=== PATIENT | male | born 1945 | race Caucasian/White ===

== ENCOUNTER 2019-01-31 16:57 | Inpatient (IN) | payer MEDICARE, OTHER ==
[~2019-01-31] VITALS: Ht 172.7 cm; Wt 86.3 kg
[2019-01-31] MEDS ORDERED: SODIUM CHLORIDE 0.9% 1,000 ML IV ONE (17:29)
[2019-01-31] MEDS ORDERED: ASPirin 81 mg TAB PO ONE (17:30)
[2019-01-31 18:25] LABS: Albumin 2.8 g/dL (3.4-5.0); Calcium 8.3 mg/dL (8.5-10.1); Potassium 3.6 mmol/L (3.5-5.1)
[2019-01-31 18:30] LABS: BUN/Creatinine Ratio 23.1; Bilirubin, Total 0.5 mg/dL (0.2-1.0); Total Protein 7.1 g/dL (6.4-8.2)
[2019-01-31 19:09] LABS: Basophils # (auto) 0 uL; Basophils % (auto) 0.1 % (0.0-2.0); Eosinophils # (auto) 0 uL; Eosinophils % (auto) 0.1 % (0.0-7.0); Hematocrit 43.3 % (41.0-53.0); Hemoglobin 14.3 g/dL (13.5-17.5); Lymphocytes # (auto) 1.4 uL; Lymphocytes % (auto) 12.2 % (10.0-50.0); Mean Corpuscular Hemoglobin 30.7 pg (28.0-32.0); Mean Corpuscular Hgb Conc. 33.1 g/dL (32.0-36.0); Mean Corpuscular Volume 92.8 fL (80.0-100.0); Monocytes # (auto) 1.1 uL; Neutrophils # (auto) 8.8 uL; Neutrophils % (auto) 77.6 % (37.0-80.0); Platelet Count (auto) 211 10^3/uL (140-450); Red Blood Cells 4.66 10^6/uL (4.5-5.90); Red Cell Distribution Width 15.2 % (11.8-14.3); White Blood Cell 11.3 10^3/uL (4.4-10.8)
[2019-01-31] MEDS ORDERED: ENOXAPARIN SOD 100 MG/1 ML SYRINGE SC ONE (19:15)
[2019-01-31 19:31] LABS: INR 1.14 (0.9-1.15); Partial Thromboplastin Time 22.6 sec (23.64-32.05)
[2019-01-31] MEDS ORDERED: ALBUTEROL SULF 2.5 MG/0.5ML(0.5%) NEB SOLN NEB ONE (21:45)
[2019-01-31] MEDS ORDERED: IPRATROPIUM BROM 0.5 MG/2.5ML INH SOL NEB ONE (21:45)
[2019-01-31] MEDS ORDERED: HYDROcodone-ACET 5/325MG TAB PO PRN (22:00)
[2019-01-31] MEDS ORDERED: ACETAMINOPHEN 325 MG TAB PO PRN (22:00)
[2019-01-31] MEDS ORDERED: NITROGLYCERIN 0.4 MG SL TAB SL PRN (22:00)
[2019-01-31] MEDS ORDERED: MORPHINE SULF INJ 2 MG/ML SYRINGE 1ML IV PRN (22:00)
[2019-01-31] MEDS ORDERED: ONDANSETRON HCL 4 MG/2 ML VIAL IV PRN (22:00)
[2019-01-31] MEDS: ATORVASTATIN 20 MG TAB PO SCH (23:11)
[2019-01-31] MEDS: MEXILETINE HYDROCHLORIDE 150 MG CAP PO SCH (23:11)
[2019-01-31] MEDS: METOPROLOL TARTRATE 25 MG TAB PO SCH (23:45)
[2019-02-01] VITALS (18 sets, daily range): BP systolic 103–126; BP diastolic 39–55
--- NOTE | 2019-02-01 05:24 | NUR ---
Respiratory note: ASSESSED PATIENT FOR PRN BREATHING TX. PATIENT WAS IN NO RESPIRATORY DISTRESS AND DENIES ANY SHORTNESS OF BREATH. PATIENT HR 54, SP02 98% ON 2 L NASAL CANNULA, RR 17, AND BREATH SOUNDS ARE CLEAR. PATIENT WAS INFORMED TO HAVE RT PAGED IF BREATHING TX IS NEEDED. PATIENT VERBALIZED UNDERSTANDING. WILL CONTINUE TO MONITOR PATIENT.
[2019-02-01 05:49] LABS: Basophils # (auto) 0 uL; Basophils % (auto) 0.3 % (0.0-2.0); Eosinophils # (auto) 0 uL; Eosinophils % (auto) 0.1 % (0.0-7.0); Hematocrit 41.2 % (41.0-53.0); Hemoglobin 13.5 g/dL (13.5-17.5); Lymphocytes # (auto) 1.8 uL; Lymphocytes % (auto) 21.7 % (10.0-50.0); Mean Corpuscular Hemoglobin 30.4 pg (28.0-32.0); Mean Corpuscular Hgb Conc. 32.7 g/dL (32.0-36.0); Mean Corpuscular Volume 92.8 fL (80.0-100.0); Monocytes # (auto) 0.8 uL; Monocytes % (auto) 9.3 % (0.0-12.0); Neutrophils # (auto) 5.7 uL; Neutrophils % (auto) 68.6 % (37.0-80.0); Nucleated Red Blood Cells % 0.1 %; Platelet Count (auto) 238 10^3/uL (140-450); Red Blood Cells 4.44 10^6/uL (4.5-5.90); Red Cell Distribution Width 14.9 % (11.8-14.3); White Blood Cell 8.3 10^3/uL (4.4-10.8)
[2019-02-01 05:50] LABS: Urine Bacteria NONE SEEN /hpf (None Seen); Urine Blood Negative /uL (Negative); Urine Mucus FEW (None Seen); Urine Specific Gravity 1.019 (1.001-1.035); Urine WBC <1 /hpf (0 - 3)
[2019-02-01 06:08] LABS: Calcium 8.4 mg/dL (8.5-10.1); Potassium 4.4 mmol/L (3.5-5.1)
[2019-02-01 06:11] LABS: BUN/Creatinine Ratio 22.6
[2019-02-01] MEDS: MEXILETINE HYDROCHLORIDE 150 MG CAP PO SCH ×3 (06:27→22:00)
[2019-02-01] MEDS: ALBUTEROL SULF 2.5 MG/0.5ML(0.5%) NEB SOLN NEB PRN ×2 (06:39→18:44)
[2019-02-01] MEDS: IPRATROPIUM BROM 0.5 MG/2.5ML INH SOL NEB PRN ×2 (06:39→18:44)
--- NOTE | 2019-02-01 06:39 | NUR ---
Respiratory note: PRN BREATHING TX WAS GIVEN DUE TO PATIENT FEELING SHORT OF BREATH. NO ADVERSE REACTIONS NOTED. WILL CONTINUE TO MONITOR PATIENT. FABIO LAWSON AWARE.
[2019-02-01] MEDS: CLOPIDOGREL BISULFATE 75 MG TAB PO SCH (09:32)
--- NOTE | 2019-02-01 09:40 | NUR ---
Respiratory note: PRN BREATHING TX GIVEN DUE TO PATIENT FEELING SHORT OF BREATH. NO ADVERSE REACTIONS NOTED OR STATED. PATIENT IS TOLERATING TX WELL. FABIO ADAIR AWARE. WILL CONTINUE TO MONITOR PATIENT.
[2019-02-01] MEDS ORDERED: VALSARTAN 80 MG TAB PO SCH (10:00)
[2019-02-01] MEDS: ASPirin-EC 81 mg tab PO SCH (10:20)
[2019-02-01] MEDS: ENOXAPARIN SOD 100 MG/1 ML SYRINGE SC SCH ×2 (10:20→22:13)
[2019-02-01] MEDS: METOPROLOL TARTRATE 25 MG TAB PO SCH ×2 (10:32→22:00)
[2019-02-01] MEDS: MAGNESIUM SULFATE 1GM/100ML 100 ML IV SCH ×2 (13:09→14:23)
[2019-02-01] MEDS ORDERED: AMIODARONE HCL 150 MG in D5W 5% 100 ML IV ONE (13:45)
[2019-02-01] MEDS ORDERED: AMIODARONE HCL 900 MG in DEXTROSE 500 ML IV SCH (13:47)
[2019-02-01 15:02] LABS: Alcohol, Urine < 3.0 mg/dL (0-5); Amphetamine Screen, Urine NEGATIVE (NEGATIVE); Barbiturate Scree,Urine NEGATIVE (NEGATIVE); Benzodiazephine Screen, Urine NEGATIVE (NEGATIVE); Cannabinoid Screen, Urine NEGATIVE (NEGATIVE); Cocaine Screen, Urine NEGATIVE (NEGATIVE); Opiate Scree,Urine NEGATIVE (NEGATIVE); Phencyclidine Screen, Urine NEGATIVE (NEGATIVE)
--- NOTE | 2019-02-01 19:45 | NUR ---
Pt being admitted to ICU CHERI GANDHI admitted to ICU via gurney on laboratory monitor, and portable 02. Patient transferred to bed, connected to ICU monitoring and oxygen, and weighed by bed scale. Patient oriented to Shaniqua Cunha primary RN, unit, room, bed, and unit policies regarding patient care and visiting hours. All questions and concerns addressed, patient verbalized understanding. NOTE: PT A/O X 4 WITH NO COMPLAINTS OF PAIN OR SOB. AMIO INFUSING AT 1 MG/MIN TO RIGHT HAND 18 G, LINE PATENT/INTACT/ASYMPTOMATIC. PT AWARE TO INFORM RN IF ANY IRRITATION BEGINS TO OCCUR. PT SR IN THE 70s WITH OCCASIONAL PVCs, SBP 110s. ZOLL LIFE VEST IN PLACE, FABRIC MACHINE OPERATOR AND HOT SPOT AT BEDSIDE.PT ON 2 L NC, POX 94-96%, RIGHT UPPER LUNG SOUNDS COARSE, NON PRODUCTIVE COUGH. CALL LIGHT WITHIN REACH, PT AWARE TO CALL RN FOR ANY ASSISTANCE PRN.
--- NOTE | 2019-02-01 21:00 | NUR ---
ZOLL NOTE PT ONLY HAS ZOLL VEST BRAND STRATEGIST AT BEDSIDE, SON TO BRING IN "HOT SPOT". SPOKE WITH SONIA FROM [employer], STATES TO CALL ONCE "HOT SPOT" IS AT BEDSIDE AND INTERROGATION CAN BE DONE AT BEDSIDE WITH RN. WILL FOLLOW UP WHEN "HOT SPOT" ARRIVES. BRAND STRATEGIST AT BEDSIDE AND PLUGGED IN.
--- NOTE | 2019-02-01 21:15 | NUR ---
ACTIVITY PT. REFUSING TO USE URINAL, EDUCATED ON LIGHT ACTIVITY D/T HISTORY OF CHEST PAIN/SOB IN ED. PT CONTINUES TO REFUSE USING URINAL STATING "THEY LET ME USE THE BATHROOM IN THE ER". FALL SOCKS PLACED ON PT, AMBULATED TO BATHROOM WITH STANDBY ASSIST ON 2 L NC, PT WITH STEADY GAIT. TOLERATED ACTIVITY WELL AND ASSISTED BACK TO BED WITHOUT ISSUE. CALL LIGHT WITHIN REACH.
[2019-02-01] MEDS: AMIODARONE HCL 900 MG in DEXTROSE 500 ML IV SCH (21:45)
--- NOTE | 2019-02-01 21:45 | NUR ---
AMIO DECREASED DRIP TO 0.5 MG/MIN PER PROTOCOL.
[2019-02-01] MEDS: ATORVASTATIN 20 MG TAB PO SCH (22:13)
--- NOTE | 2019-02-01 22:14 | NUR ---
PO MEDICATIONS PT'S HR SR IN THE 60s; HELD PO METOPROLOL AND PO MEXITIL TO AVOID BRADYCARDIA. SBP 110s.
[2019-02-02] VITALS (63 sets, daily range): BP systolic 81–157; BP diastolic 31–87
--- NOTE | 2019-02-02 00:41 | NUR ---
PT'S GRANDDAUGHTER AT BEDSIDE, UPDATE PROVIDED.
--- NOTE | 2019-02-02 00:55 | NUR ---
BLOOD PRESSURE PT. RESTING, EYES CLOSED WITH RESPIRATIONS EVEN AND UNLABORED. SBP MAINTAINING IN THE 80s, HOSPITALIST JENNIFER. AMIO CONTINUES TO INFUSE AT 0.5 MG/MIN, HR SB HIGH 50s WITH PVCs. Addendum: 02/02/19 at 0104 by Shaniqua Cunha RN ERROR: VAUGHN RODRIGUEZ
--- NOTE | 2019-02-02 01:26 | NUR ---
SECOND PAGE TO CARDIOLOGY. Addendum: 02/02/19 at 0238 by Shaniqua Cunha RN CHARU ON HOLD AT THIS TIME FOR PT SAFETY.
[2019-02-02] MEDS ORDERED: VALS40TA2 PO (01:31)
[2019-02-02] MEDS ORDERED: ATOR40TA52 PO (01:31)
[2019-02-02] MEDS ORDERED: ASPI-231 PO (01:31)
[2019-02-02] MEDS ORDERED: MEX150C PO (01:31)
[2019-02-02] MEDS ORDERED: CLOP75TA41 PO (01:31)
[2019-02-02] MEDS ORDERED: METO25TA5 PO (01:31)
--- NOTE | 2019-02-02 04:15 | NUR ---
ACTIVITY PT. UP TO BATHROOM WITH STANDBY ASSIST, VOIDED APPROX. 600 MLs CLEAR YELLOW URINE AND ASSISTED BACK TO BED WITHOUT ISSUE.
[2019-02-02 04:19] LABS: Basophils # (auto) 0 uL; Basophils % (auto) 0.1 % (0.0-2.0); Eosinophils # (auto) 0.1 uL; Eosinophils % (auto) 0.9 % (0.0-7.0); Hematocrit 39.4 % (41.0-53.0); Hemoglobin 13.4 g/dL (13.5-17.5); Lymphocytes # (auto) 1.9 uL; Lymphocytes % (auto) 21.4 % (10.0-50.0); Mean Corpuscular Hemoglobin 31.3 pg (28.0-32.0); Mean Corpuscular Volume 92.1 fL (80.0-100.0); Monocytes # (auto) 0.8 uL; Monocytes % (auto) 8.9 % (0.0-12.0); Neutrophils % (auto) 68.7 % (37.0-80.0); Nucleated Red Blood Cells % 0.1 %; Platelet Count (auto) 214 10^3/uL (140-450); Red Blood Cells 4.28 10^6/uL (4.5-5.90); Red Cell Distribution Width 14.6 % (11.8-14.3); White Blood Cell 8.7 10^3/uL (4.4-10.8)
[2019-02-02 04:38] LABS: Calcium 7.8 mg/dL (8.5-10.1); Potassium 3.9 mmol/L (3.5-5.1)
[2019-02-02 04:42] LABS: BUN/Creatinine Ratio 19.1; Magnesium 2.5 mg/dL (1.6-2.6)
[2019-02-02] MEDS: MEXILETINE HYDROCHLORIDE 150 MG CAP PO SCH ×3 (06:00→22:30)
--- NOTE | 2019-02-02 06:10 | NUR ---
HERBERT MCCONNELLATION SPOKE WITH ADALID MOONEY, WHO WALKED ME THROUGH THE STEPS TO SEND DATA RECOVERED FROM THE PT'S INITIAL EPISODE AT HOME. SHE FAXED COPIES OF THE DATA RETRIEVED, WILL PLACE IN CHART AND INFORM DR. CLARK. SHE STATES "VEST IS FUNCTIONING APPROPRIATELY".
--- NOTE | 2019-02-02 07:33 | NUR ---
CARDIO DR. CLARK AT BEDSIDE TO ASSESS PT. UPDATE PROVIDED. ORDER RECEIVED TO CONSULT DR. WALTER.
--- NOTE | 2019-02-02 07:34 | NUR ---
SPOKE WITH DR. WALTER, UPDATE PROVIDED ON PT. STATES HE WILL BE IN THIS AM TO EVALUATE.
--- NOTE | 2019-02-02 07:35 | NUR ---
REPORT CARE ENDORSED TO FABIO SYED.
--- NOTE | 2019-02-02 07:40 | NUR ---
OPEN Report received from Shaniqua MCCARTHY, care assumed. Patient observed sitting on edge of bed. No distress or complaints of pain noted. Patient is A&Ox4. Patient able to ambulate with standby assistance. Afebrile. Vitals stable. Patient is wearing Zoll life vest at this time. Sinus rhythm 60's. Blood pressure stable. Lungs diminished on 2 L nasal cannula. Denies shortness of breath. Physical assessment performed. Bed locked in lowest position, call light within reach. Patient instructed to call for assistance. Patient verbalized understanding. Will continue to monitor.
--- NOTE | 2019-02-02 08:20 | NUR ---
MEDICAL RECORDS Request form sent to [facility] for echocardiogram report.
[2019-02-02] MEDS: ALBUTEROL SULF 2.5 MG/0.5ML(0.5%) NEB SOLN NEB PRN (09:06)
[2019-02-02] MEDS: IPRATROPIUM BROM 0.5 MG/2.5ML INH SOL NEB PRN (09:06)
[2019-02-02] MEDS: CLOPIDOGREL BISULFATE 75 MG TAB PO SCH (10:00)
[2019-02-02] MEDS: SACUBITRIL-VALSARTAN 24mg/26mg TAB PO SCH ×2 (10:00→22:30)
[2019-02-02] MEDS: ENOXAPARIN SOD 100 MG/1 ML SYRINGE SC SCH (10:00)
[2019-02-02] MEDS: ASPirin-EC 81 mg tab PO SCH (10:01)
[2019-02-02] MEDS: AMIODARONE HCL 200 MG TAB PO SCH ×2 (10:01→22:30)
--- NOTE | 2019-02-02 11:20 | NUR ---
WOUND CARE NOTE: Wound care in to see patient per wound care request regarding "Rt upper back scabbed lesion" that are noted present on admission. Bedside nurse took photograph of patient's wound upon admission for reference. Patient is 74 y/o male with admitting diagnosis of CP, V Tach. Patient has history of Htn, VT. Patient is resting in ICU bed in Rm 106. He's awake, alert and oriented. He's ambulatory and uses BSC, self turn and reposition. His current Leonardo score is 20. Patient denies any pain at this time. 1.5x1cm open full thickness wound with no measurable depth noted to patient's Rt upper back. Wound is red with pink periwound, scant serosanguineous drainage noted, no odor noted. Cleansed with NS,patted dry with gauze, applied Thera honey gel and covered with Opti foam gentle dressing per MD order. Dry scabbed lesion also noted to his Lt shoulder, area is clean and dry, left open to air. Patient reported that he's to see a education administrative assistant upon discharge. No pressure injury noted. Repositioned patient for comfort sitting on his bed with head of bed elevated. Patient tolerated well. Bed in low position, Call dye within reach. No further wound care monitoring needed at this time. RECOMMENDATION: Q3Days/PRN dressing change to Rt upper back wound per MD order. Addendum: 02/02/19 at 1721 by Alison Rivera RN Amended: Links added.
--- NOTE | 2019-02-02 11:21 | NUR ---
VOID Patient ambulated to toilet to urinate with standby assistance. Patient tolerated activity well, denies shortness of breath or pain. Patient now back in bed resting with call light within reach. Will continue to monitor.
--- NOTE | 2019-02-02 11:24 | NUR ---
WOUND CARE Consult complete by Kev MCCARTHY.
--- NOTE | 2019-02-02 11:41 | NUR ---
CARDIOLOGY ROUNDS at bedside for consult. He consented patient on AICD placement for either tomorrow or Saturday. All questions and concerns have been addressed. He has seen Zoll interrogation report. He stated to D/C Lovenox and hold Plavix for tomorrow.
[2019-02-02] MEDS: METOPROLOL TARTRATE 25 MG TAB PO SCH ×2 (11:45→22:30)
--- NOTE | 2019-02-02 14:00 | NUR ---
VIDEO Patient watched the educational video regarding AICD procedure.
[2019-02-02] MEDS: AMIODARONE HCL 900 MG in DEXTROSE 500 ML IV SCH (15:18)
--- NOTE | 2019-02-02 15:18 | NUR ---
PO MEDICATIONS Mexitil held due to heart rate decreasing into 50's. SBP 100's, no distress noted. Will continue to monitor.
--- NOTE | 2019-02-02 16:00 | NUR ---
PAIN Patient complaining of head ache, "pressure in my temples". Patient medicated with Tylenol PRN.
--- NOTE | 2019-02-02 16:30 | NUR ---
ROOM CHANGE Patient moved to room 103 via bed with all personal belongings.
--- NOTE | 2019-02-02 17:17 | NUR ---
MD ROUNDS at bedside. Orders received for downgrade, solar tech, and he is aware of AICD placement scheduled for tomorrow.
[2019-02-02] MEDS ORDERED: AZITHROMYCIN 250 MG TAB PO ONE (19:45)
--- NOTE | 2019-02-02 20:19 | NUR ---
REPORT REPORT GIVEN TO FABIO PETERS. PT TRANSFERRED UP TO [facility] VIA BED ON PORTABLE MONITOR RAND 2 L NC. ALL BELONGINGS INCLUDING CELL PHONE, ZOLL VEST, ZOLL MONITOR AND HOT SPOT SENT WITH PATIENT. PT STABLE AT TIME OF TRANSFER.
--- NOTE | 2019-02-02 20:20 | NUR ---
RECEIVED REPORT FROM FABIO CORBETT. ASSUMED CARE OF PATIENT. AWAITING PATIENT ARRIVAL FROM ICU.
--- NOTE | 2019-02-02 20:30 | NUR ---
TRANSFER FROM ICU TO [facility] PATIENT ARRIVED VIA ICU BED, WITH CHARGE NURSE AND PEST CONTROL PILOT. PATIENT CONNECTED TO PORTABLE MONIOTR AND 2L NASAL CANULA. ALL BELONGINGS INCLUDING CELL PHONE, ZOLL VEST, ZOLL MONITOR AND HOTSPOT AT BEDSIDE WITH PATIENT. PATIENT SHOWS NO SIGNS OR SYMPTOMS OF SOB, PAIN OR DISTRESS. UPDATED PATIENT ON PLAN OF CARE. BED IN LOWEST POSITION, SIDE RAILS UP X2, CALL LIGHT WITHIN REACH. WILL CONTINUE TO MONITOR.
--- NOTE | 2019-02-02 21:30 | NUR ---
Respiratory note: PT SEEN AND ASSESSED FOR PRN MED NEB TX AT 2130. TX NOT INDICATED AT THIS TIME. PT DISPLAYING NO SIGNS OF RESPIRATORY DISTRESS. HR 61 RR 18 POX 95% ON 3L NASAL CANNULA.
[2019-02-02] MEDS: ATORVASTATIN 20 MG TAB PO SCH (22:30)
[2019-02-03] VITALS: BP 132/71
--- NOTE | 2019-02-03 03:20 | NUR ---
MORNING CARE PERFORMED MORNING CARE WITH CHG WIPES AND WASH CLOTHS TO THE FACE. PARTIAL LINEN CHANGE AND GOWN CHANGED. REPOSITIONED FOR COMFORT. PATIENT TOLERATED WELL. NO SIGNS OR SYMPTOMS OF SOB, PAIN OR DISTRESS. WILL CONTINUE TO MONITOR.
[2019-02-03 04:00] VITALS: BP 127/65
[2019-02-03] MEDS: MEXILETINE HYDROCHLORIDE 150 MG CAP PO SCH ×3 (06:00→21:39)
[2019-02-03 06:37] LABS: Potassium 4.2 mmol/L (3.5-5.1)
[2019-02-03 06:43] LABS: Albumin 2.5 g/dL (3.4-5.0); BUN/Creatinine Ratio 19.8; Bilirubin, Total 0.8 mg/dL (0.2-1.0); Calcium 8.6 mg/dL (8.5-10.1); Total Protein 6.8 g/dL (6.4-8.2)
--- NOTE | 2019-02-03 06:50 | NUR ---
END OF SHIFT PATIENT IN BED WATCHING TV WITH NO SIGNS OR SYMPTOMS OF SOB, PAIN OR DISTRESS. CURRENTLY ON 3L 02, 02 SAT - 97%. EDUCATED PATIENT ON HOW TO USE THE INCENTIVE SPIROMETER. UPDATED PATIENT ON PLAN OF CARE. RIGHT HAND AND LEFT ANTECUBITAL IV - CLEAN/DRY/INTACT. BED IN LOWEST POSITION, SIDE RAILS UP X2, CALL LIGHT WITHIN REACH. WILL ENDORSE CARE TO DAY SHIFT RN.
--- NOTE | 2019-02-03 07:30 | NUR ---
RECEIVED PATIENT SITTING UP IN THE BED, A/O TIMES 4, O2 AT 3L BY THE N/C, RT HAND 20G AND LAC 20GA BOTH FLUSHED, PATENT AND INTACT, STATES HE GOES TO THE BR, DENIES PAIN , HAS ZOLL VEST ON AND STATES HE IS TIRED OF WEARING IT, EXPRESS TO HIM, THAT I WOULD CALL THE DEPUTY CHIEF EXECUTIVE AND SEE WHAT TIME HE IS GOING FOR HIS PACEMAKER PLACEMENT,
--- NOTE | 2019-02-03 07:50 | NUR ---
SPOKE WITH EFRA IN THE CREDIT COLLECTIONS REP AND STATED THAT THE PATIENTS PACEMAKER IS GOING TO BE PLACED TOMORROW AT 0730
[2019-02-03 08:00] VITALS: BP 123/59
--- NOTE | 2019-02-03 08:30 | NUR ---
CHANGED OPTIFOAM TO THE RT SHOULDER BLADE Addendum: 02/03/19 at 1523 by Jewels Curry RN CHANGE TIME TO 0800
--- NOTE | 2019-02-03 08:50 | NUR ---
DR LUEVANO IN TO SEE THE PATIENT AND EXPRESS TO HIM THAT HE WAS GOING TO PLACE THE PACEMAKER TOMORROW
--- NOTE | 2019-02-03 09:05 | NUR ---
DR BLANTON INTO SEE THE PATIENT AND TALK TO HIM REGARDING THE POC
--- NOTE | 2019-02-03 09:15 | NUR ---
SITTING ON THE SIDE OF THE BED EATING HIS BREAKFAST AFTER PROCEDURE WAS CANCELLED FOR TODAY
--- NOTE | 2019-02-03 09:20 | NUR ---
Respiratory note: PT ASSESSED FOR PRN MED NEB TX. TX IS NOT INDICATED AT THIS TIME. NO SOB NOTED. ON 3L NC POX 94%, HR 64, RR 19. B/S ARE CLEAR THROUGHOUT AND SLIGHTLY DIMINISHED IN THE BASES. PT IS AWARE TO PRESS THE CALL LIGHT IF HE FEELS ANY SOB TO RECEIVE A MED NEB TX.
[2019-02-03] MEDS: CLOPIDOGREL BISULFATE 75 MG TAB PO SCH (09:58)
[2019-02-03] MEDS: METOPROLOL TARTRATE 25 MG TAB PO SCH ×2 (10:00→21:40)
[2019-02-03] MEDS: ASPirin-EC 81 mg tab PO SCH (10:14)
[2019-02-03] MEDS: SACUBITRIL-VALSARTAN 24mg/26mg TAB PO SCH ×2 (10:14→21:36)
[2019-02-03] MEDS: AMIODARONE HCL 200 MG TAB PO SCH ×2 (10:14→21:36)
--- NOTE | 2019-02-03 10:15 | NUR ---
DISCUSSED MEDICATIONS WITH THE PATIENT REGARDING THE DOSAGE, USAGE, AND THE SIDE EFFECTS, AND VERBALIZED HE UNDERSTOOD AND MEDS GIVEN ORDERED
--- NOTE | 2019-02-03 10:30 | NUR ---
SON IN TO VISIT WITH THE PATIENT
--- NOTE | 2019-02-03 11:30 | NUR ---
PATIENT WALKED TO THE BATHROOM NO HELP NEEDED
[2019-02-03 11:50] VITALS: BP 97/67
--- NOTE | 2019-02-03 12:30 | NUR ---
PATIENT SAT UP ON THE SIDE OF THE BED AND ATE HIS LUNCH NO HELP NEEDED
--- NOTE | 2019-02-03 13:30 | NUR ---
TALKING ON THE PHONE STATES HE IS OKAY
--- NOTE | 2019-02-03 13:30 | NUR ---
SITTING UP IN BED WATCHING TV, NO CHANGE IN CONDITION
--- NOTE | 2019-02-03 14:30 | NUR ---
SITTING UP IN BED WATCHING TV, DENIES PAIN
--- NOTE | 2019-02-03 15:12 | NUR ---
DOZING ON AND OFF
[2019-02-03 15:50] VITALS: BP 120/58
--- NOTE | 2019-02-03 15:53 | NUR ---
WATCHING TV, NO COMPLAINTS
--- NOTE | 2019-02-03 16:09 | NUR ---
BALDOMERO FROM AQUA AMMONIA OPERATOR IN TALKING WITH THE PATIENT ABOUT HIS MEDICARE RIGHTS, RECHECKED HIS TEMP 99 AFTER REMOVING THE BLANKETS AND TURNING THE TEMPERATURE DOWN IN THE ROOM
--- NOTE | 2019-02-03 16:45 | NUR ---
WALKED TO THE BR NO HELP NEEDED NO CHEST PAIN
--- NOTE | 2019-02-03 17:30 | NUR ---
PATIENT SITTING UP IN THE BED, WATCHING TV, STATES HE IS TRYING TO SLEEP, SO THE TIME WILL GO BY FASTER, AND HE CAN GT HIS PACEMAKER DONE
--- NOTE | 2019-02-03 17:40 | NUR ---
RECHECKED TEMP 98.9
--- NOTE | 2019-02-03 18:29 | NUR ---
PATIENT SAT UP ON THE SIDE OF THE BED, AND ATE HIS DINNER AND NOW GOING TO THE BR, A/O TIMES 4, O2 AT 3L BY N/C, LIFE VEST STILL IN PLACE, SALINE LOCK TO THE RT HAND 20G AND LAC 20G BOTH FLUSHED AND PATENT, USES THE URINAL AND BR, MADE AWARE THAT THE OPTOMETRIC AIDE CALLED AND STATED THEY WANT HIM READY TO GO AT 0630 FOR THE AICD, BUSTER THEODORE , WILL CONTINUE TO MONITOR AND GIVE REPORT TO THE NEXT SHIFT
--- NOTE | 2019-02-03 18:55 | NUR ---
Pt assessed for prn tx. Pt denies any sob and is aware to page if tx is needed or becomes sob. Tx not indicated. Hr 73 rr 20 pox 96% on 3 lpm via nc.
--- NOTE | 2019-02-03 19:10 | NUR ---
OPENING SHIFT RECEIVED REPORT FROM DAY SHIFT RN. ASSUMED CARE OF PATIENT. PATIENT ALERT/ORIENTED X4 AND IN BED WATCHING TV WITH NO SIGNS OR SYMPTOMS OF SOB, PAIN OR DISTRESS. CURRENTLY ON 3L 02 NASAL CANULA, 02 SAT - 97%. RIGHT HAND AND LEFT ANTECUBITAL IV - CLEAN/DRY/INTACT. UPDATED PATIENT ON PLAN OF CARE. BED IN LOWEST POSITION, SIDE RAILS UP X2, CALL LIGHT WITHIN REACH. WILL CONTINUE TO MONITOR.
[2019-02-03 19:48] VITALS: BP 116/50
[2019-02-03] MEDS: AZITHROMYCIN 250 MG TAB PO SCH (20:46)
--- NOTE | 2019-02-03 21:10 | NUR ---
DR. COATES AT BEDSIDE AND ASSESSED PATIENT. NO NEW ORDERS AT THIS TIME.
[2019-02-03] MEDS: ATORVASTATIN 20 MG TAB PO SCH (21:37)
--- NOTE | 2019-02-04 00:25 | NUR ---
ROUNDS PATIENT IN BED SLEEPING WITH NO SIGNS OR SYMPTOMS OF SOB, PAIN OR DISTRESS. CURRENTLY ON 3L 02 NASAL CANULA, 02 SAT - 98%. BED IN LOWEST POSITION, SIDE RAILS UP X2, CALL LIGHT WITHIN REACH. WILL CONTINUE TO MONITOR.
--- NOTE | 2019-02-04 03:40 | NUR ---
MORNING CARE PERFORMED MORNING CARE WITH CHG WIPES AND WASH CLOTHS TO THE FACE. PATIENT TOLERATED WELL. PARTIAL LINEN CHANGE AND GOWN CHANGED. REPOSITIONED FOR COMFORT. RIGHT HAND AND LEFT ANTECUBITAL IV - CLEAN/DRY/INTACT AND FLUSHES WELL. BED IN LOWEST POSITION, SIDE RAILS UP X2, CALL LIGHT WITHIN REACH. WILL CONTINUE TO MONITOR.
[2019-02-04] MEDS: MEXILETINE HYDROCHLORIDE 150 MG CAP PO SCH ×3 (06:00→22:00)
--- NOTE | 2019-02-04 06:30 | NUR ---
DR. WALTER CALLED AND GAVE ORDERS FOR A 500CC FLUID BOLUS OF NORMAL SALINE.
--- NOTE | 2019-02-04 06:30 | NUR ---
Respiratory note: ROUTINE PRN TX CHECK. HR 66, RR 18, POX 97%, BREATH SOUNDS ARE CLEAR/DIMINISHED. NO SOB OR DISTRESS NOTED. PT WAS NOTIFY TO HAVE RT PAGE FOR TX.
--- NOTE | 2019-02-04 06:40 | NUR ---
IV REMOVAL RIGHT HAND IV REMOVED. IV INTACT, PATIENT TOLERATED WELL.
--- NOTE | 2019-02-04 07:00 | NUR ---
PATIENT LEFT TO HEAT TREAT PULLER VIA 2 NURSES.
--- NOTE | 2019-02-04 07:05 | NUR ---
END OF SHIFT PATIENT LEFT TO SCHOOL PATROL VIA 2 NURSES ON [facility] BED. WILL ENDORSE CARE TO DAY SHIFT RN.
[2019-02-04] MEDS ORDERED: fentaNYL CITRATE 100 MCG/2 ML VL ONE (07:14)
[2019-02-04] MEDS ORDERED: VANCOMYCIN HCL 1000 MG VL ONE (07:14)
[2019-02-04] MEDS ORDERED: MIDAZOLAM HCL 1MG/1ML-2 ML VIAL ONE (07:14)
[2019-02-04] MEDS ORDERED: BACITRACIN INJ 50000 UNIT VIAL ONE (07:15)
[2019-02-04] MEDS ORDERED: VANCOMYCIN 1GM/250ML 250 ML IV ONE (07:15)
[2019-02-04] MEDS ORDERED: IOHEXOL 350 MG/ML 100ML IJ ONE ×2 (07:32→07:36)
[2019-02-04] MEDS ORDERED: LIDOCAINE 2%HCL (LOCAL ANESTH.) INJ 20ML MDV ONE (07:36)
[2019-02-04] MEDS ORDERED: SODIUM CHLORIDE 0.9% 500 ML IV ONE (07:45)
[2019-02-04] MEDS: CLOPIDOGREL BISULFATE 75 MG TAB PO SCH (09:39)
[2019-02-04] MEDS: METOPROLOL TARTRATE 25 MG TAB PO SCH ×2 (10:00→22:02)
--- NOTE | 2019-02-04 10:00 | NUR ---
Patient back to room from Dump Motor Operator s/p ICD placement. Patient connected to unit monitors, VS WNL. No S/S of SOB or pain noted. LT chest dressing dry and intact. Ice pack placed on LT shoulder, sling on LT arm applied. Instructed patient not to reach, pull with LT arm, no rolling side to side. Patient verbalized understanding. See interventions for complete assessment. Bed locked on low position, side rails up x2, bed alarms on at all times, call dye within reach, instructed to call for needed assistance. Will continue to monitor.
[2019-02-04] MEDS: SACUBITRIL-VALSARTAN 24mg/26mg TAB PO SCH ×2 (10:35→22:02)
[2019-02-04] MEDS: DOXYCYCLINE 100 MG TAB/CAP PO SCH ×2 (10:36→22:02)
[2019-02-04] MEDS: AMIODARONE HCL 200 MG TAB PO SCH ×2 (10:36→22:02)
[2019-02-04 12:00] VITALS: BP 133/69
--- NOTE | 2019-02-04 12:16 | NUR ---
NUTRITION ASSESSMENT NOTES Please refer to link notes of nutrition screen form filed under the intervention section of the plan of care for further details. Est. Needs: 1750 kcal to 2150 kcal (20-35 kcal/kgBW), 69 gms to 86 gms pro (0.8-1.0 gms/kgBW). Will continue to monitor pertinent labs and reassess nutrient need prn Thank you. Addendum: 02/04/19 at [address] Amended: Links added.
[2019-02-04] MEDS: VANCOMYCIN 1GM/250ML 250 ML IV SCH ×2 (14:30→22:02)
[2019-02-04 15:52] VITALS: BP 139/65
--- NOTE | 2019-02-04 19:01 | NUR ---
Respiratory note: ASSESSED PT FOR PRN. PT IS CURRENTLY ON 3 L/M NC: HR 68, RR 20, SPO2 95%. PT SHOWS NO S/S OF RESPIRATORY DISTRESS. PRN TX NOT GIVEN AT THIS TIME. INFORMED PT IF SOB TO CONTACT RESPIRATORY FOR BREATHING TX. WILL CONTINUE TO MONITOR.
[2019-02-04 19:54] VITALS: BP 129/89
[2019-02-04] MEDS: AZITHROMYCIN 250 MG TAB PO SCH (20:40)
[2019-02-04 22:00] VITALS: BP 152/71
[2019-02-04] MEDS: ATORVASTATIN 20 MG TAB PO SCH (22:02)
[2019-02-05 00:44] VITALS: BP 129/66
[2019-02-05 04:30] VITALS: BP 116/89
[2019-02-05] MEDS: MEXILETINE HYDROCHLORIDE 150 MG CAP PO SCH ×3 (06:00→22:12)
[2019-02-05 07:45] VITALS: BP 128/60
--- NOTE | 2019-02-05 07:45 | NUR ---
Opening Shift Note Assumed care of patient @ 0730, awake and alert. No S/S of distress/SOB or pain. Sling to LT arm, LT upper chest dressing dry and intact, no bruising, hematoma or signs of bleeding noted, ice pack placed. Instructed patient not to roll side to side, no reaching, pulling with LT arm. See interventions for complete assessment. Bed locked on low position, side rails up x2, bed alarms on at all times, call dye within reach, instructed on POC and to call for assist PRN, will continue to monitor for changes Q1hr and PRN.
[2019-02-05] MEDS: AMIODARONE HCL 200 MG TAB PO SCH ×2 (10:06→22:12)
[2019-02-05] MEDS: DOXYCYCLINE 100 MG TAB/CAP PO SCH ×2 (10:07→22:12)
[2019-02-05] MEDS: SACUBITRIL-VALSARTAN 24mg/26mg TAB PO SCH ×2 (10:07→22:12)
[2019-02-05] MEDS: METOPROLOL TARTRATE 25 MG TAB PO SCH ×2 (10:07→22:00)
[2019-02-05] MEDS: CLOPIDOGREL BISULFATE 75 MG TAB PO SCH (10:07)
--- NOTE | 2019-02-05 10:22 | NUR ---
Paged Dr Mireles and called back. Updated on patients status. Received telephone order to transfer patient to Telemetry. Orders read back and verified. Will carry out.
--- NOTE | 2019-02-05 11:20 | NUR ---
[facility] pt transferred to floor [facility] transfered to room 220 via hospital bed on gambling monitor and portable 02. All patient medications and personal belongings including life vest, black cellphone, black shoes, clothes transferred with patient to receiving floor. Patient care transfered to Marina MCCARTHY.
--- NOTE | 2019-02-05 11:30 | NUR ---
PATIENT RECEIVED FROM [facility] Received patient from [facility] after receiving report. The patient is A&Ox4, no signs or symptoms of distress. Educated the patient on POC and patient verbalized understanding. The patient's call light is within reach and bed is in the lowest, locked position. Will round hourly and continue to monitor.
[2019-02-05 13:00] VITALS: BP 122/65
--- NOTE | 2019-02-05 13:30 | NUR ---
Dr. Mireles at bedside
--- NOTE | 2019-02-05 14:20 | NUR ---
Patient up to chair. Will continue to monitor.
--- NOTE | 2019-02-05 15:04 | NUR ---
ASSESSED PT FOR PRN MED NEB BREATHING TX, PT SITTING ON CHAIR ON 2L NC WITH SPO2 94%, HR 60 WITH DIMINISHED BS. NO SOB NOTED. WILL CONTINUE TO MONITOR PT.
[2019-02-05 17:00] VITALS: BP 117/59
--- NOTE | 2019-02-05 17:50 | NUR ---
Dr. Manley at bedside The physician said that the patient is cleared to be discharged. He would like the patient to go home on Doxycycline 100mg po BID for 1 week, starting now. The patient has already been started on the Doxycycline as a scheduled medication. Will continue to monitor.
--- NOTE | 2019-02-05 18:23 | NUR ---
Respiratory note: PT ASSESSED FOR PRN MED NEB TX. PT IS CURRENTLY ON 2 L/M NC: HR 67, RR 18, SPO2 94%. PT SHOWS NO S/S OF RESPIRATORY DISTRESS. MED NEB TX NOT REQUIRED. INFORMED PT IF SOB TO CONTACT RESPIRATORY FOR BREATHING TX. WILL CONTINUE TO MONITOR.
--- NOTE | 2019-02-05 19:30 | NUR ---
RECEIVED PATIENT LYING IN BED, AWAKE, ALERT, ORIENTED X4. NO S/S OF RESPIRATORY DISTRESS, DENIES SOB AND CHEST PAIN. WITH DRESSING ON THE LEFT UPPER CHEST, DRY AND INTACT. ORIENTED ON PLAN OF CARE. BED IS LOCKED AND IN LOWEST LEVEL. SIDE RAILS UP X2, CALL LIGHT WITHIN REACH. WILL CONTINUE TO MONITOR.
[2019-02-05] MEDS: AZITHROMYCIN 250 MG TAB PO SCH (20:52)
[2019-02-05 21:30] VITALS: BP 119/56
[2019-02-05] MEDS: ATORVASTATIN 20 MG TAB PO SCH (22:12)
[2019-02-06 05:00] VITALS: BP 119/55
[2019-02-06] MEDS: MEXILETINE HYDROCHLORIDE 150 MG CAP PO SCH ×2 (06:14→13:57)
--- NOTE | 2019-02-06 07:15 | NUR ---
CARE ENDORSED TO AM SHIFT RN
--- NOTE | 2019-02-06 07:27 | NUR ---
PT ASSESSED FOR PRN HHN TX. PT IS ON 2LNC, SPO2 93%, HR 65, RR 18. NO S/S OF RESPIRATORY DISTRESS. PT AWARE TO HAVE RT PAGED IF SOB OCCURS. WILL CONTINUE TO MONITOR.
[2019-02-06 08:52] VITALS: BP 130/74
[2019-02-06] MEDS: METOPROLOL TARTRATE 25 MG TAB PO SCH (09:33)
[2019-02-06] MEDS: AMIODARONE HCL 200 MG TAB PO SCH (09:33)
[2019-02-06] MEDS: SACUBITRIL-VALSARTAN 24mg/26mg TAB PO SCH (09:33)
[2019-02-06] MEDS: DOXYCYCLINE 100 MG TAB/CAP PO SCH (09:34)
[2019-02-06] MEDS: CLOPIDOGREL BISULFATE 75 MG TAB PO SCH (09:34)
[2019-02-06] MEDS ORDERED: ASPirin 81 mg TAB PO SCH (10:00)
[2019-02-06 12:32] VITALS: BP 111/51
--- NOTE | 2019-02-06 15:02 | NUR ---
REPORT GIVEN TO [facility] RECEIVED CALL FROM [facility], CASE MANAGEMENT. THE PATIENT IS GOING TO ROOM 8A. HE IS TO BE PICKED UP AT 1700 BY [facility]. REPORT WAS CALLED TO FABIO MICHEL. WILL WAIT FOR TRANSPORT AND CONTINUE TO MONITOR.
--- NOTE | 2019-02-06 16:24 | NUR ---
assessment Per consult SNF placement. Per Dr Mireles contact [facility]. Patients rupal Sarabia agrees with SNF. MD order has been sent to [facility]. Per [facility] has accepted pt to room 8-A and accepting MD is Dr[facility]les[facility] Reported to Cristina MCCARTHY. [facility] agrees to discharge plan to [facility]. Addendum: 02/06/19 at 1628 by Susie Gupta Amended: Links added.
[2019-02-06 17:01] VITALS: BP 118/54
--- NOTE | 2019-02-06 17:43 | NUR ---
Discharge instructions given as ordered. Encourage to follow up with PMD as instructed. All questions and concerns addressed. Patient verbalized understanding. Medication reconciliation form completed and copy given to patient. Home medications held in Pharmacy returned to patient, and needed vaccines given. IV removed with catheter intact, pressure dressing applied. Telemetry unit returned to ICU. Patient taken to vehicle via wheelchair with all personal belongings, accompanied by [employer] personal. No distress noted at time of departure.
== END 2019-02-06 18:21 | DRG 227 ==
LOC: EDBD 16:58 → ER 17:01 → TELE 22:03 → ICU WEST 02-01 19:40 → DOU IN ICU 02-02 20:15 → TELE-CENTR 02-05 11:26
PROVIDERS: ADMIT Nurse Practitioner Family; ATTEND Internal Medicine
PROC: 0JH609Z Insertion of Cardiac Resynchronization Defibrillator Pulse Generator into Chest Subcutaneous Tissue and Fascia, Open Approach (ICD-10-PCS; principal; 2019-02-04)
PROC: 02HL3KZ Insertion of Defibrillator Lead into Left Ventricle, Percutaneous Approach (ICD-10-PCS; 2019-02-04)
PROC: 02HK3KZ Insertion of Defibrillator Lead into Right Ventricle, Percutaneous Approach (ICD-10-PCS; 2019-02-04)
PROC: 02H63KZ Insertion of Defibrillator Lead into Right Atrium, Percutaneous Approach (ICD-10-PCS; 2019-02-04)
PROC: B5171ZZ Fluoroscopy of Left Subclavian Vein using Low Osmolar Contrast (ICD-10-PCS; 2019-02-04)
DX: I21.4 Non-ST elevation (NSTEMI) myocardial infarction (principal); I47.2 Ventricular tachycardia; E44.0 Moderate protein-calorie malnutrition; I50.22 Chronic systolic (congestive) heart failure; J44.1 Chronic obstructive pulmonary disease with (acute) exacerbation; I45.2 Bifascicular block; E78.5 Hyperlipidemia, unspecified; I11.0 Hypertensive heart disease with heart failure; I25.10 Atherosclerotic heart disease of native coronary artery without angina pectoris; I45.10 Unspecified right bundle-branch block; F17.210 Nicotine dependence, cigarettes, uncomplicated; H91.90 Unspecified hearing loss, unspecified ear; I25.5 Ischemic cardiomyopathy; Z91.19 Patient's noncompliance with other medical treatment and regimen; Z68.28 Body mass index [BMI] 28.0-28.9, adult; I25.2 Old myocardial infarction; Z95.5 Presence of coronary angioplasty implant and graft; Z99.81 Dependence on supplemental oxygen; Z86.73 Personal history of transient ischemic attack (TIA), and cerebral infarction without residual deficits
CPT/HCPCS: 33249; 36012; 36415; 71045; 80048; 80053; 80307; 81001; 83735; 83880; 84484; 85025; 85610; 85730; 86850; 86900; 86901; 87081; 93005; 94640; 96365; 96366; 96367; 96372; 96375; 97116; 97530; 99152; G0378; J2250; J7060

== ENCOUNTER 2019-06-30 20:33 | Inpatient (IN) | payer MEDICARE ==
[~2019-06-30] VITALS: Ht 167.6 cm; Wt 80.0 kg
[~2019-06-30 20:33] MED LIST: ASPI-231 PO; ATOR40TA52 PO; CLOP75TA41 PO; METO25TA5 PO; VALS40TA2 PO
[2019-06-30 22:21] LABS: Basophils # (auto) 0.1 uL; Basophils % (auto) 0.8 % (0.0-2.0); Eosinophils # (auto) 0.3 uL; Hematocrit 44.2 % (41.0-53.0); Hemoglobin 14.3 g/dL (13.5-17.5); Lymphocytes # (auto) 2.4 uL; Lymphocytes % (auto) 28.3 % (10.0-50.0); Mean Corpuscular Hemoglobin 28.8 pg (28.0-32.0); Mean Corpuscular Hgb Conc. 32.4 g/dL (32.0-36.0); Mean Corpuscular Volume 88.9 fL (80.0-100.0); Monocytes # (auto) 0.8 uL; Monocytes % (auto) 9.9 % (0.0-12.0); Neutrophils # (auto) 4.8 uL; Nucleated Red Blood Cells % 0.1 %; Platelet Count (auto) 173 10^3/uL (140-450); Red Blood Cells 4.98 10^6/uL (4.5-5.90); Red Cell Distribution Width 17.1 % (11.8-14.3); White Blood Cell 8.4 10^3/uL (4.4-10.8)
[2019-06-30 22:41] LABS: INR 1.09 (0.9-1.15); Partial Thromboplastin Time 27.4 sec (23.64-32.05)
[2019-06-30 22:45] LABS: Alanine Aminotransferase 16 U/L (16-61); Anion Gap 5 (5-15); Aspartate Aminotransferase 17 U/L (15-37); BUN/Creatinine Ratio 11.2; Blood Urea Nitrogen 11 mg/dL (7-18); Calcium 8.7 mg/dL (8.5-10.1); Carbon Dioxide 29 mmol/L (21-32); Chloride 106 mmol/L (98-107); GFR African American 96 mL/min; GFR Non-African American 79 mL/min; Glucose 103 mg/dL (74-106); Sodium 140 mmol/L (136-145)
[2019-06-30 22:49] LABS: Alkaline Phosphatase 87 U/L (45-117); Bilirubin, Total 0.3 mg/dL (0.2-1.0); Total Protein 7.5 g/dL (6.4-8.2)
[2019-06-30 23:19] LABS: Urine WBC None Seen /hpf (0 - 3)
[2019-06-30 23:29] LABS: Urine Bacteria NONE SEEN /hpf (None Seen); Urine Blood Negative /uL (Negative); Urine Specific Gravity 1.003 (1.001-1.035)
[2019-07-01] VITALS (7 sets, daily range): BP systolic 108–135; BP diastolic 56–74
[2019-07-01] MEDS ORDERED: EZET-10 PO (02:41)
[2019-07-01] MEDS ORDERED: ONDANSETRON HCL 4 MG/2 ML VIAL IV PRN (03:00)
[2019-07-01] MEDS ORDERED: MORPHINE SULF INJ 2 MG/ML SYRINGE 1ML IV PRN ×2 (03:00)
[2019-07-01] MEDS ORDERED: NITROGLYCERIN 0.4 MG SL TAB SL PRN (03:00)
[2019-07-01] MEDS ORDERED: hydrALAZINE HCL 20 MG/ML VL IV PRN (03:00)
--- NOTE | 2019-07-01 04:30 | NUR ---
Telemetry admit from ER CHER[facility] GANDHI admitted to Telemetry unit after SBAR received. Patient oriented to Adelia Chu, primary RN, unit, room, bed, and unit policies regarding patient care and visiting hours. Patient now on continuous telemetry monitoring, tele box # 13 and telemetry reading on arrival to unit is 61 . Patient placed on bedside oxygen, weighed by bedscale and encouraged to call if they need something. All questions and concerns addressed, patient verbalized understanding. Note:
--- NOTE | 2019-07-01 08:33 | NUR ---
Opening Shift Note Assumed care of patient, awake and alert. No S/S of distress/SOB or pain. Instructed on POC and to call for assist PRN, will continue to monitor for changes Q1hr and PRN.
[2019-07-01] MEDS: VALSARTAN 80 MG TAB PO SCH (09:35)
[2019-07-01] MEDS: EZETIMIBE 10 MG PO SCH (09:35)
[2019-07-01 09:36] LABS: Basophils # (auto) 0.1 uL; Basophils % (auto) 0.9 % (0.0-2.0); Eosinophils # (auto) 0.3 uL; Eosinophils % (auto) 4.9 % (0.0-7.0); Hematocrit 42.5 % (41.0-53.0); Hemoglobin 13.9 g/dL (13.5-17.5); Lymphocytes # (auto) 1.8 uL; Mean Corpuscular Hemoglobin 29.1 pg (28.0-32.0); Mean Corpuscular Hgb Conc. 32.8 g/dL (32.0-36.0); Mean Corpuscular Volume 88.7 fL (80.0-100.0); Monocytes # (auto) 0.5 uL; Neutrophils # (auto) 3.7 uL; Neutrophils % (auto) 58.2 % (37.0-80.0); Platelet Count (auto) 159 10^3/uL (140-450); Red Cell Distribution Width 17.1 % (11.8-14.3); White Blood Cell 6.4 10^3/uL (4.4-10.8)
[2019-07-01] MEDS: METOPROLOL TARTRATE 25 MG TAB PO SCH ×2 (09:36→21:42)
[2019-07-01] MEDS: ASPirin-EC 81 mg tab PO SCH (09:36)
[2019-07-01] MEDS: CLOPIDOGREL BISULFATE 75 MG TAB PO SCH (09:36)
[2019-07-01 09:58] LABS: Alanine Aminotransferase 13 U/L (16-61); Albumin 2.9 g/dL (3.4-5.0); Anion Gap 7 (5-15); Aspartate Aminotransferase 15 U/L (15-37); BUN/Creatinine Ratio 11.2; Blood Urea Nitrogen 10 mg/dL (7-18); Calcium 8.3 mg/dL (8.5-10.1); Carbon Dioxide 25 mmol/L (21-32); Chloride 107 mmol/L (98-107); GFR African American 107 mL/min; GFR Non-African American 89 mL/min; Glucose 133 mg/dL (74-106); Potassium 3.7 mmol/L (3.5-5.1); Sodium 139 mmol/L (136-145)
[2019-07-01 10:03] LABS: Alkaline Phosphatase 81 U/L (45-117); Bilirubin, Total 0.4 mg/dL (0.2-1.0); Total Protein 7.1 g/dL (6.4-8.2)
--- NOTE | 2019-07-01 16:32 | NUR ---
md moore rounded on patient updated on plan of care, per md he wants pt to have on stockings, and orthostatic vitals x1 a shift
--- NOTE | 2019-07-01 16:44 | NUR ---
WOUND CARE NOTE: PATIENT ADMITTED TO [facility] WITH DIAGNOSIS OF ANGINA. CURRENT ANUJ SCORE IS 17. PATIENT CAN SELF TURN/REPOSITION SELF. PATIENT NOTED TO HAVE OPEN WOUND TO RIGHT UPPER BACK AT TIME OF ADMIT. WOUND WAS PHOTOGRAPHED AT THAT TIME BY BEDSIDE NURSE FOR REFERENCE. PATIENT HAS OPEN DRAINING LESION TO THE RIGHT UPPER BACK. 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 PATIENT WOULD BENEFIT FROM EOD/PRN DRESSING CHANGES TO THE WOUND WITH THERAHONEY, OPTIFOAM GENTLE DRESSING. SKIN/WOUND CARE PLAN IMPLEMENTED, DIETARY CONSULT ORDERED FOR CONSULT. PATIENT TO FOLLOW UP OUT PATIENT WITH HIS DOCTOR FOR RIGHT BACK LESION. NO FURTHER WOUND CARE MONITORING NEEDED AT THIS TIME.
--- NOTE | 2019-07-01 17:07 | NUR ---
dressing applied to right shoulder lesion adam stocking applied
--- NOTE | 2019-07-01 19:30 | NUR ---
Opening Shift Note Assumed care of patient. Patient is awake and alert. No S/S of distress/SOB or pain. Instructed on POC and to call for assist PRN, will continue to monitor for changes. Devan ramos present. Bed locked in lowest position and bed rails up x2. Call light within reach.
--- NOTE | 2019-07-01 21:00 | NUR ---
Orthostatic Vitals signs were as follows: Lying: B/P, 108/60, HR, 60, O2, 96 Standing: B/P, 131/74, HR, 69, O2, 92 Patient currently on 2lpm NC
[2019-07-01] MEDS: ATORVASTATIN 20 MG TAB PO SCH (21:39)
[2019-07-02] VITALS (7 sets, daily range): BP systolic 98–137; BP diastolic 54–70
--- NOTE | 2019-07-02 04:40 | NUR ---
Patient monitor showed run of V-tach. Upon entrance of room patient asymptomatic with no s/s of chest pain. Vitals stable and patient resting comfortably
--- NOTE | 2019-07-02 06:00 | NUR ---
Dr. Andrea notified of patient run of V-tach, EKG reading, stable vital signs and no s/s of chest pain
--- NOTE | 2019-07-02 06:47 | NUR ---
Dr. Andrea responded back to notification of patient and made aware of run of V-tach, EKG reading, stable vital signs and no s/s of chest pain. No new orders given.
--- NOTE | 2019-07-02 07:30 | NUR ---
Opening Shift Note Assumed care of patient, awake and alert. No S/S of distress/SOB or pain. Instructed on POC and to call for assist PRN, will continue to monitor for changes Q1hr and PRN. Bed is in lowest position with 2x side rails up for safety and call light is within reach.
[2019-07-02] MEDS ORDERED: ADENOSINE 68 MG in GIVE UN-DILUTED 0 ML IV STA (08:20)
--- NOTE | 2019-07-02 09:27 | NUR ---
PT TAKEN DOWN FOR PROCEDURE VIA WHEEL CHAIR.
[2019-07-02] MEDS: EZETIMIBE 10 MG PO SCH (10:00)
[2019-07-02] MEDS: METOPROLOL TARTRATE 25 MG TAB PO SCH ×2 (10:00→22:00)
[2019-07-02] MEDS: ASPirin-EC 81 mg tab PO SCH (11:08)
[2019-07-02] MEDS: CLOPIDOGREL BISULFATE 75 MG TAB PO SCH (11:08)
[2019-07-02] MEDS: VALSARTAN 80 MG TAB PO SCH (11:08)
--- NOTE | 2019-07-02 13:30 | NUR ---
PT REPORTS THAT HE IS DOING WELL AND DOES NOT NEED P.T.
--- NOTE | 2019-07-02 15:30 | NUR ---
Dr. Andrea at bedside, patient is advised. Made him aware of V-tach episodes earlier. Patient is for left heart catheterization tomorrow.
--- NOTE | 2019-07-02 15:54 | NUR ---
NUTRITION CONSULT/ASSESSMENT NOTES Please refer to link notes of nutrition screen form filed under the intervention section of the plan of care for further details. Est. Needs: 1600 kcal to 2000 kcal (20-25 kcal/kgBW), 64 gms to 81 gms pro (0.8-1.0 gms/kgBW). Will continue to monitor pertinent labs and reassess nutrient need prn Thank you for this consult. Addendum: 07/02/19 at [address] Amended: Links added.
--- NOTE | 2019-07-02 17:07 | NUR ---
Discharge planning per SS consult, referral sent to [facility] for resumption. Acceptance is pending.
[2019-07-02] MEDS: ATORVASTATIN 20 MG TAB PO SCH (22:26)
--- NOTE | 2019-07-02 22:50 | NUR ---
Orthostatic Vitals signs were as follows: Lying: B/P, 123/56, HR, 63, O2, 96 Standing: B/P, 111/64, HR, 78, O2, 95 Patient currently on 2lpm NC with humidfier
--- NOTE | 2019-07-02 23:58 | NUR ---
Patient showed run of V-tach through tele monitor. Upon assessment patient is asymptomatic, vitals are stable, EKG performed and no s/s of chest pain noted.
[2019-07-03] VITALS (7 sets, daily range): BP systolic 100–145; BP diastolic 54–81
--- NOTE | 2019-07-03 07:30 | NUR ---
Opening Shift Note Assumed care of patient, awake and alert. No S/S of distress/SOB or pain. Bed is in lowest position with 2x side rails up for safety. Instructed on POC and to call for assist PRN, will continue to monitor for changes Q1hr and PRN.
--- NOTE | 2019-07-03 07:45 | NUR ---
Pt to clam bed laborer for procedure Transported patient to clam bed laborer via bed.
[2019-07-03] MEDS ORDERED: LIDOCAINE 2%HCL (LOCAL ANESTH.) INJ 20ML MDV ONE (07:58)
[2019-07-03] MEDS ORDERED: IOHEXOL 350 MG/ML 100ML IJ ONE (08:02)
[2019-07-03] MEDS ORDERED: MIDAZOLAM HCL 1MG/1ML-2 ML VIAL ONE (08:31)
[2019-07-03] MEDS ORDERED: SODIUM CHL 0.9% 0 ML ONE (08:31)
[2019-07-03] MEDS ORDERED: fentaNYL CITRATE 100 MCG/2 ML VL ONE (08:31)
[2019-07-03] MEDS ORDERED: ANGIOMAX 250 MG VIAL IV ONE (08:31)
--- NOTE | 2019-07-03 09:00 | NUR ---
Patient out for procedure for 0900 vitals.-EW
--- NOTE | 2019-07-03 09:44 | NUR ---
Pt back from syrup machine laborer
[2019-07-03] MEDS: EZETIMIBE 10 MG PO SCH (10:00)
[2019-07-03] MEDS: ASPirin-EC 81 mg tab PO SCH (10:22)
[2019-07-03] MEDS: CLOPIDOGREL BISULFATE 75 MG TAB PO SCH (10:22)
[2019-07-03] MEDS: METOPROLOL TARTRATE 25 MG TAB PO SCH (10:23)
[2019-07-03] MEDS: VALSARTAN 80 MG TAB PO SCH (11:23)
--- NOTE | 2019-07-03 13:30 | NUR ---
IV removal Two IV's DC'd with clean sterile technique, both IV catheters are 22g and are fully intact. Pressure dressing applied to both sites. Patient tolerated well.
--- NOTE | 2019-07-03 13:30 | NUR ---
Discharge phot on the right upper back taken. Addendum: 07/03/19 at 1510 by Re Tena RN spelling correction: Discharge photo
--- NOTE | 2019-07-03 13:42 | NUR ---
Discharge planning per consult, patient has orders for home health. Patient choose [facility]. Referral was faxed, placed a follow up call, spoke with Gena and was advised that they will accept patient and start of care will start within 24-48 hours. Nurse Grimaldo was advised of dc plan. Addendum: 07/03/19 at 1349 by IVANIA ALY Amended: Links added.
--- NOTE | 2019-07-03 15:00 | NUR ---
Discharge instructions given as ordered. Encourage to follow up with PMD Dr. Mireles on 07/08/19 at 9:30am and cardiology follow up with Dr. Andrea on 07/08/19 at 2:40pm as instructed. All questions and concerns addressed. Patient verbalized understanding. Medication reconciliation form completed and copy given to patient. IV removed with catheter intact, pressure dressing applied. Telemetry unit returned to ICU. Patient taken to vehicle via wheelchair with all personal belongings, accompanied by staff and family member. No distress noted at time of departure.
== END 2019-07-03 15:35 | disposition home health service (06) | DRG 287 ==
LOC: ER 20:36 → TELE-EAST 20:37
PROVIDERS: ADMIT Internal Medicine; ATTEND Internal Medicine
PROC: 4A023N7 Measurement of Cardiac Sampling and Pressure, Left Heart, Percutaneous Approach (ICD-10-PCS; principal; 2019-07-03)
PROC: B2111ZZ Fluoroscopy of Multiple Coronary Arteries using Low Osmolar Contrast (ICD-10-PCS; 2019-07-03)
PROC: B2151ZZ Fluoroscopy of Left Heart using Low Osmolar Contrast (ICD-10-PCS; 2019-07-03)
DX: I25.110 Atherosclerotic heart disease of native coronary artery with unstable angina pectoris (principal); I50.22 Chronic systolic (congestive) heart failure; I11.0 Hypertensive heart disease with heart failure; J44.9 Chronic obstructive pulmonary disease, unspecified; I95.1 Orthostatic hypotension; I49.5 Sick sinus syndrome; E78.5 Hyperlipidemia, unspecified; E78.00 Pure hypercholesterolemia, unspecified; C44.90 Unspecified malignant neoplasm of skin, unspecified; F17.200 Nicotine dependence, unspecified, uncomplicated; I25.5 Ischemic cardiomyopathy; I25.2 Old myocardial infarction; Z95.5 Presence of coronary angioplasty implant and graft; Z82.49 Family history of ischemic heart disease and other diseases of the circulatory system; Z82.3 Family history of stroke; Z81.2 Family history of tobacco abuse and dependence; Z88.8 Allergy status to other drugs, medicaments and biological substances; Z79.82 Long term (current) use of aspirin; Z79.899 Other long term (current) drug therapy; Z95.810 Presence of automatic (implantable) cardiac defibrillator
CPT/HCPCS: 36415; 70450; 71045; 78452; 80053; 81001; 83735; 83880; 84484; 85025; 85610; 85730; 93005; 93017; 93458; 99152; G0378; J0153; J2250

== ENCOUNTER 2019-07-04 05:13 | Inpatient (IN) | payer MEDICARE ==
[~2019-07-04] VITALS: Ht 167.6 cm; Wt 80.3 kg
[~2019-07-04 05:13] MED LIST changes: +EZET-10 PO
[2019-07-04 07:41] LABS: Basophils # (auto) 0.1 uL; Basophils % (auto) 0.9 % (0.0-2.0); Eosinophils # (auto) 0.2 uL; Hematocrit 42.5 % (41.0-53.0); Hemoglobin 14.4 g/dL (13.5-17.5); Lymphocytes # (auto) 1.9 uL; Lymphocytes % (auto) 23.7 % (10.0-50.0); Mean Corpuscular Hemoglobin 29.7 pg (28.0-32.0); Mean Corpuscular Hgb Conc. 33.9 g/dL (32.0-36.0); Mean Corpuscular Volume 87.8 fL (80.0-100.0); Monocytes # (auto) 0.8 uL; Monocytes % (auto) 10.3 % (0.0-12.0); Neutrophils # (auto) 5.1 uL; Neutrophils % (auto) 62.1 % (37.0-80.0); Platelet Count (auto) 178 10^3/uL (140-450); Red Blood Cells 4.84 10^6/uL (4.5-5.90); Red Cell Distribution Width 16.5 % (11.8-14.3); White Blood Cell 8.2 10^3/uL (4.4-10.8)
[2019-07-04 08:01] LABS: INR 1.05 (0.9-1.15); Partial Thromboplastin Time 26.5 sec (23.64-32.05)
[2019-07-04 08:07] LABS: Albumin 3.1 g/dL (3.4-5.0); BUN/Creatinine Ratio 16.8; Calcium 8.6 mg/dL (8.5-10.1)
[2019-07-04 08:13] LABS: Bilirubin, Total 0.3 mg/dL (0.2-1.0); Total Protein 7.8 g/dL (6.4-8.2)
[2019-07-04] MEDS ORDERED: NITROGLYCERIN 0.4 MG SL TAB SL PRN (15:15)
[2019-07-04] MEDS ORDERED: MORPHINE SULF INJ 2 MG/ML SYRINGE 1ML IV PRN ×2 (15:15)
[2019-07-04] MEDS ORDERED: ONDANSETRON HCL 4 MG/2 ML VIAL IV PRN (15:15)
[2019-07-04] MEDS ORDERED: LORazepam 2MG/ML-1ML VIAL ONE (19:27)
[2019-07-04] MEDS ORDERED: MAGNESIUM SULFATE 1GM/100ML 100 ML IV ONE ×2 (19:28→19:45)
[2019-07-04] MEDS ORDERED: LORazepam 2MG/ML-1ML VIAL IV ONE (19:45)
[2019-07-04] MEDS ORDERED: AMIODARONE HCL 900 MG in DEXTROSE 500 ML IV SCH (19:57)
[2019-07-04] MEDS ORDERED: AMIODARONE HCL 150 MG in D5W 5% 100 ML IV ONE (20:00)
[2019-07-04] MEDS ORDERED: AMIODARONE HCL (50 MG/ ML) 3 ML VIAL IV ONE (20:16)
[2019-07-04] MEDS ORDERED: AMIODARONE HCL 900 MG IV ONE (21:06)
[2019-07-04] MEDS: ATORVASTATIN 20 MG TAB PO SCH (23:12)
[2019-07-04] MEDS: METOPROLOL TARTRATE 25 MG TAB PO SCH (23:13)
[2019-07-05] MEDS ORDERED: AMIODARONE HCL 900 MG in DEXTROSE 500 ML IV SCH (01:57)
[2019-07-05] MEDS ORDERED: CLOPIDOGREL BISULFATE 75 MG TAB ONE (10:02)
[2019-07-05] MEDS ORDERED: METOPROLOL TARTRATE 25 MG TAB ONE ×2 (10:03→22:05)
[2019-07-05] MEDS: ASPirin-EC 81 mg tab PO SCH (10:03)
[2019-07-05] MEDS: METOPROLOL TARTRATE 25 MG TAB PO SCH ×2 (10:03→23:29)
[2019-07-05] MEDS ORDERED: ASPirin-EC 81 mg tab PO ONE (10:03)
[2019-07-05] MEDS ORDERED: VALSARTAN 80 MG TAB ONE (10:03)
[2019-07-05] MEDS: VALSARTAN 80 MG TAB PO SCH (10:04)
[2019-07-05] MEDS: CLOPIDOGREL BISULFATE 75 MG TAB PO SCH (10:04)
--- NOTE | 2019-07-05 14:22 | NUR ---
Telemetry admit from ER CHERI GANDHI admitted to Telemetry unit after SBAR received. Patient oriented to MURRAY RENE RN primary RN, unit, room, bed, and unit policies regarding patient care and visiting hours. Patient now on continuous telemetry monitoring, tele box #[id number] and telemetry reading on arrival to unit is SR 60. Patient placed on bedside oxygen, weighed by bedscale and encouraged to call if they need something. All questions and concerns addressed, patient verbalized understanding.
[2019-07-05] MEDS: AMIODARONE HCL 200 MG TAB PO SCH ×2 (15:55→22:08)
--- NOTE | 2019-07-05 16:00 | NUR ---
Wound Photos Wound Photos taken at this time. Will input wound consult per protocol.
[2019-07-05 17:00] VITALS: BP 104/60
--- NOTE | 2019-07-05 19:24 | NUR ---
Closing Shift Note Patient is resting in bed. No distress noted. Report given. Will endorse care to the slot shift supervisor RN.
--- NOTE | 2019-07-05 19:30 | NUR ---
Opening Shift Note Assumed care of patient, awake and alert. No S/S of distress/SOB or pain. Updated on POC and to call for assist PRN, patient verbalized understanding, call light within reach, will continue to monitor for changes Q1hr and PRN.
[2019-07-05 20:00] VITALS: BP 109/57
[2019-07-05 22:00] VITALS: BP 109/57
[2019-07-05] MEDS ORDERED: ATORVASTATIN 20 MG TAB ONE (22:05)
[2019-07-05] MEDS: ATORVASTATIN 20 MG TAB PO SCH (22:08)
[2019-07-06 05:00] VITALS: BP 112/64
[2019-07-06] MEDS: AMIODARONE HCL 200 MG TAB PO SCH ×3 (06:39→22:30)
--- NOTE | 2019-07-06 07:25 | NUR ---
Opening Shift Note Assumed care of patient, awake and alert. No S/S of distress/SOB or pain. Instructed on POC and to call for assist PRN, call light within reach, bed alarm on, will continue to monitor for changes Q1hr and PRN.
[2019-07-06 08:50] VITALS: BP 128/68
--- NOTE | 2019-07-06 10:03 | NUR ---
CALLED [facility] PACEMAKER [facility]ROGATION SPOKE WITH TABITHA FROM [employer] , STATES HE WILL COME SEE PATIENT, PT UPDATED, CONT CARE
--- NOTE | 2019-07-06 10:15 | NUR ---
AMBULATION PT AMBULATED TO BATHROOM, WITH EXTENDED OXYGEN CANULA, PT TOLERATED WELL, CONT CARE
--- NOTE | 2019-07-06 11:16 | NUR ---
Nutrition Assessment Notes please see attached link for complete assessment Est. Needs BW 80 [id number] kcal (23-25 kcal/kgBW), 80-88 gms pro (1.0-1.1 gms/kgBW). Will continue to monitor pertinent labs and reassess nutrient need prn Addendum: 07/06/19 at [address] Amended: Links added.
--- NOTE | 2019-07-06 11:25 | NUR ---
WOUND CARE NOTE: PATIENT ADMITTED TO [facility] WITH DIAGNOSIS OF AICD ELIZABETH TAFOYA. PATIENT HAS CURRENT ANUJ SCORE OF 19. HE CAN SELF TURN/REPOSITION SELF WITH NO ASSISTANCE BY STAFF. PATIENT HAS A CHRONIC OPEN 1 X 1 LESION TO THE RIGHT BACK. PATIENT WOULD BENEFIT FROM EOD/PRN DRESSING CHANGE TO OPEN LESION PER MD ORDER, SKIN/WOUND CARE PLAN. NO FURTHER WOUND CARE NEEDED AT THIS TIME. Addendum: 07/06/19 at 1622 by Yarelis Orona RN Amended: Links added.
[2019-07-06 13:00] VITALS: BP 145/72
[2019-07-06] MEDS: ASPirin-EC 81 mg tab PO SCH (14:23)
[2019-07-06] MEDS: CLOPIDOGREL BISULFATE 75 MG TAB PO SCH (14:24)
[2019-07-06] MEDS: METOPROLOL TARTRATE 25 MG TAB PO SCH ×2 (14:24→21:42)
[2019-07-06] MEDS: VALSARTAN 80 MG TAB PO SCH (14:25)
--- NOTE | 2019-07-06 16:27 | NUR ---
Pt is an alert and oriented male that resides with his son and was receiving home health services prior to admission. Pt was recently discharged about 2 days ago and is now back in the hospital. SS consult regarding readmission. Per pt he was sleeping and awakened because he knocked over glass of water and was cleaning it up. This is when his pacemaker went off and "zapped" him. Per pt his son called the hospital and they advised him to go to the ER. Once he was in the ER his pacemaker went off 2 more times. Pt verbalizing concerns regarding the shocks, the pain, and what the plan is going to be. Advised pt that we are awaiting the blending tank tender helper to come in and communicate his plan. Pt verbalized understanding and agreeance with information. will continue to monitor and provide intervention as appropriate. Addendum: 07/06/19 at 1634 by LINDA SULLIVAN Amended: Links added.
[2019-07-06 16:50] VITALS: BP 121/63
--- NOTE | 2019-07-06 18:11 | NUR ---
MD DR COOPER AT BEDSIDE, DISCUSSING POC, AWARE PT IS POSITIVE FOR MRSA IN NARES, CONT CARE
[2019-07-06] MEDS: ATORVASTATIN 20 MG TAB PO SCH (21:39)
[2019-07-06] MEDS: MAGNESIUM OXIDE 400 MG TAB PO SCH (21:42)
[2019-07-06 22:00] VITALS: BP 122/66
[2019-07-07 04:52] VITALS: BP 122/74
[2019-07-07] MEDS: AMIODARONE HCL 200 MG TAB PO SCH ×3 (06:07→21:05)
--- NOTE | 2019-07-07 06:46 | NUR ---
Dressing to right shoulder back changed, cleansed with NS, patted dry, applied honey and covered with optifoam, patient tolerated well
--- NOTE | 2019-07-07 07:09 | NUR ---
Opening shift note Assumed care of patient from refinery operator nurse. patient alert and oriented x4, no signs of distress noted. Plan of care discussed with patient and he verbalizes understanding. Bed in the lowest position, side rails up x2, call light in reach.
[2019-07-07 09:00] VITALS: BP 107/61
[2019-07-07] MEDS: ASPirin-EC 81 mg tab PO SCH (09:45)
[2019-07-07] MEDS: MAGNESIUM OXIDE 400 MG TAB PO SCH ×2 (09:46→21:06)
[2019-07-07] MEDS: CLOPIDOGREL BISULFATE 75 MG TAB PO SCH (09:47)
[2019-07-07] MEDS: METOPROLOL TARTRATE 25 MG TAB PO SCH ×2 (09:48→21:06)
[2019-07-07] MEDS: VALSARTAN 80 MG TAB PO SCH (09:49)
[2019-07-07 13:00] VITALS: BP 125/75
[2019-07-07 17:00] VITALS: BP 127/73
--- NOTE | 2019-07-07 17:50 | NUR ---
Message left for Dr Mireles to inform patient and patients son wanting discharge held until tomorrow, verbalizing they feel it's "too cold" to be discharge tonight. Awaiting return call. FABIO Wells, Night Charge Nurse made aware, verbalized understanding.
[2019-07-07 19:13] VITALS: BP 122/74
--- NOTE | 2019-07-07 19:28 | NUR ---
Return call received from Dr Mireles, informed for reason for call, new orders received and followed through. Patient and son at bedside updated on plan of care, verbalized understanding.
--- NOTE | 2019-07-07 19:45 | NUR ---
assumed care, pt. awake, no c/o pain, not in distress.
[2019-07-07] MEDS: ATORVASTATIN 20 MG TAB PO SCH (21:05)
[2019-07-07 21:57] VITALS: BP 108/67
[2019-07-08 05:00] VITALS: BP 117/69
[2019-07-08] MEDS: AMIODARONE HCL 200 MG TAB PO SCH (05:30)
--- NOTE | 2019-07-08 07:13 | NUR ---
Opening Shift note Assumed care of patient from block machine operator nurse. Patient is awake, alert and oriented x4, no complaints of pain and no signs of distress noted. Patient updated on the plan of care and verbalizes understanding. bed in lowest position, side rails up x2 call light in reach.
[2019-07-08 07:29] VITALS: BP 117/69
[2019-07-08 09:00] VITALS: BP 114/65
[2019-07-08] MEDS: MAGNESIUM OXIDE 400 MG TAB PO SCH (10:27)
[2019-07-08] MEDS: VALSARTAN 80 MG TAB PO SCH (10:27)
[2019-07-08] MEDS: ASPirin-EC 81 mg tab PO SCH (10:27)
[2019-07-08] MEDS: METOPROLOL TARTRATE 25 MG TAB PO SCH (10:28)
[2019-07-08] MEDS: CLOPIDOGREL BISULFATE 75 MG TAB PO SCH (10:34)
--- NOTE | 2019-07-08 13:18 | NUR ---
Discharge instructions given as ordered. Encourage to follow up with PCP as instructed. All questions and concerns addressed. Patient verbalized understanding. IV removed with catheter intact, pressure dressing applied, patient tolerated well. Telemetry unit returned to ICU. Patient awaiting transport. No signs of distress noted.
--- NOTE | 2019-07-08 14:00 | NUR ---
Patient Discharged Patient accompanied by son and TOXICOLOGY SUPERVISOR via wheelchair. No signs of distress noted.
== END 2019-07-08 14:00 | disposition home or self-care (01) | DRG 308 ==
LOC: ER 05:13 → TELE 05:14 → TELE-CENTR 23:59 → UNDODISIN 07-05 00:07 → TELE 07-05 00:17 → TELE-CENTR 07-05 14:46
PROVIDERS: ADMIT Internal Medicine; ATTEND Internal Medicine
PROC: 4B02XTZ Measurement of Cardiac Defibrillator, External Approach (ICD-10-PCS; principal; 2019-07-08)
DX: I47.2 Ventricular tachycardia (principal); I50.23 Acute on chronic systolic (congestive) heart failure; E44.1 Mild protein-calorie malnutrition; I11.0 Hypertensive heart disease with heart failure; I25.10 Atherosclerotic heart disease of native coronary artery without angina pectoris; E78.5 Hyperlipidemia, unspecified; J44.9 Chronic obstructive pulmonary disease, unspecified; I25.5 Ischemic cardiomyopathy; Z95.810 Presence of automatic (implantable) cardiac defibrillator; Z68.28 Body mass index [BMI] 28.0-28.9, adult; Z82.49 Family history of ischemic heart disease and other diseases of the circulatory system; Z86.73 Personal history of transient ischemic attack (TIA), and cerebral infarction without residual deficits
CPT/HCPCS: 36415; 80053; 83735; 83880; 84484; 85025; 85610; 85730; 87081; 93005; 96365; 96375; G0378; J7060

== ENCOUNTER → 2020-02-08 | Emergency (ER) | payer MEDICARE, OTHER ==
[~2020-02-08] VITALS: Ht 165.1 cm; Wt 99.8 kg
[~2020-02-08] MED LIST changes: +EPINEPHrine HCL 1 MG/10 ML SYRG IV ONE; +SODIUM BICARBONATE 8.4% INJ 50ML SYRINGE IV ONE
[2020-02-08 20:13] VITALS: BP 0/0
== END | disposition home or self-care (01) ==
LOC: EDUNIT# 19:58 → EDBD 20:05 → ER 20:13
DX: I46.9 Cardiac arrest, cause unspecified (principal); I25.10 Atherosclerotic heart disease of native coronary artery without angina pectoris; I11.0 Hypertensive heart disease with heart failure; I50.9 Heart failure, unspecified; J44.9 Chronic obstructive pulmonary disease, unspecified; E78.5 Hyperlipidemia, unspecified; I25.2 Old myocardial infarction
CPT/HCPCS: 31500; 36600; 82805; 92950; 93005; 99291; J0171